=== PATIENT | female | born 1970 | race Caucasian/White ===

== ENCOUNTER 2019-12-18 07:36 | Outpatient (CLI) | payer BC, SELFPAY ==
[2019-12-22 17:49] LABS: SARS-CoV-2 RNA Undetected (Undetected); SARS-CoV-2 Specimen Source Nasopharynx
== END 2019-12-18 07:56 ==
PROVIDERS: PCP Nurse Practitioner; Visit Provider Nurse Practitioner
DX: Z11.59 Encounter for screening for other viral diseases (principal)
CPT/HCPCS: U0003

== ENCOUNTER 2020-05-10 01:57 | Outpatient (CLI) | payer BC, SELFPAY ==
[2020-05-11 17:06] LABS: COVID-19 RT-PCR Result NEGATIVE (Negative)
== END 2020-05-10 02:17 ==
PROVIDERS: Family Medicine; PCP Nurse Practitioner; Visit Provider Nurse Practitioner
DX: Z20.828 Contact with and (suspected) exposure to other viral communicable diseases (principal)
CPT/HCPCS: U0003